=== PATIENT | female | born 1955 | race Caucasian/White ===

== ENCOUNTER 2024-05-09 11:56 | Inpatient (IN) | payer MEDICARE, OTHER ==
[~2024-05-09] VITALS: Ht 165.1 cm; Wt 67.1 kg
[2024-05-09 12:08] LABS: BASOPHILS 0.4 % (0-2); EOSINOPHILS 1.2 % (0-6); HEMATOCRIT 35.5 % (35.0-50.0); HEMOGLOBIN 12.1 g/dL (12.0-18.0); LYMPHOCYTES 42.9 % (24-44); MCH 31.5 (27-36); MCV 92.7 fl (81-99); MONOCYTES 7.7 % (0-12); NEUTROPHILS 47.8 % (39-80); PLATELET COUNT 238 K/uL (140-440); RBC 3.83 M/ul (4.3-5.7); RDW 13.4 (10.5-15.0)
[2024-05-09] MEDS ORDERED: ASPIRIN 81 MG CHEW PO ONE (12:15)
[2024-05-09 12:25] LABS: ALBUMIN 3.7 g/dL (3.4-5.0); ALBUMIN/GLOBULIN RATIO 0.95 (1.1-2.4); ANION GAP 9.7 (7-21); BILIRUBIN, TOTAL 0.6 mg/dL (0.2-1.0); BUN/CREATININE RATIO 22.35 (6.0-28.6); CALCIUM 8.9 mg/dL (8.5-10.1); CREATININE, SERUM 0.85 mg/dL (0.55-1.02); POTASSIUM 3.7 mmol/L (3.5-5.1); PROTEIN, TOTAL 7.6 g/dL (6.4-8.2)
[2024-05-09] MEDS ORDERED: NITROGLYCERIN 0.2 MG/HR TD ONE (13:30)
[2024-05-09] MEDS ORDERED: ASPIRIN 325 MG TAB PO ONE (13:30)
[2024-05-09] MEDS ORDERED: ondansetron HCL 4 MG/2 ML VIAL IV PRN (14:30)
[2024-05-09] MEDS ORDERED: ACETAMINOPHEN 325 MG TAB PO PRN (14:30)
[2024-05-09] MEDS ORDERED: ENOXAPARIN SODIUM 40 MG/0.4 ML SYR SUB-Q SCH (14:31)
[2024-05-09] MEDS ORDERED: PANTOPRAZOLE SODIUM 40 MG TABEC PO SCH (14:31)
[2024-05-09] MEDS ORDERED: NITROGLYCERIN 0.4 MG SUBL SL PRN (14:45)
[2024-05-09 14:57] LABS: TSH, 3RD GENERATION 2.251 uIU/mL (0.358-3.740)
[2024-05-09 15:23] VITALS: BP 147/66
--- NOTE | 2024-05-09 15:44 | NUR ---
PT ARRIVED TO [facility] VIA STRETCHER, WALKED TO BED W/O DIFFICULTY. ORIENTED TO CALL LIGHT. PAIN 3, TOLERABLE. NITRO PATCH IN PLACE. DAUGHTER AT BEDSIDE. DENIES NEEDS AT THIS TIME.
--- NOTE | 2024-05-09 16:41 | NUR ---
MED REC COMPLETE
--- NOTE | 2024-05-09 17:15 | NUR ---
PT IN BED, AWAKE. FAMILY AT BEDSIDE. DENIES NEEDS AT THIS TIME. CALL LIGHT IN REACH.
[2024-05-09 17:47] VITALS: BP 171/79
--- NOTE | 2024-05-09 17:55 | NUR ---
PATIENT IN BED AT THIS TIME. ELECTRICAL PRODUCTS ENGINEER CHARTED VITALS. CALL LIGHT WITHIN REACH, NO FURTHER NEEDS AT THIS TIME.
--- NOTE | 2024-05-09 18:15 | NUR ---
ECHO IN ROOM, FAMILY AT BEDSIDE. CALL LIGHT IN REACH. PT DENIES NEEDS.
--- NOTE | 2024-05-09 19:40 | NUR ---
REPORT RECEIVED FROM MARSHALL DANIEL. pt COMPLAINS ABOUT IV TAPE, NEW WINDOW PLACED, IV SITE FLUSHED WNL. pt DENIES PAIN, NO REDNESS NOTED. CALL LIGHT IN REACH. pt'S DAUGHTER IN ROOM.
[2024-05-09] MEDS ORDERED: MELATONIN 3 MG TAB PO PRN (21:00)
[2024-05-09 21:28] VITALS: BP 143/64
[2024-05-09 21:30] VITALS: BP 143/64
--- NOTE | 2024-05-09 21:40 | NUR ---
pt AWAKE RESTING IN BED VISITING WITH DAUGHTER. ASSESSMENT COMPLETE. pt DENIES ANY PAIN. VSS. HR SR 73 ON TELE 2. CALL LIGHT AND PERSONAL SUPPLIES IN REACH.
--- NOTE | 2024-05-09 23:48 | NUR ---
CHECKED ON Pt. RESTING IN BED AWAKE, STATES HAS BEEN DOSING IN AND OUT. SBA TO RESTROOM FOR VOID AND BACK TO BED. CALL LIGHT AND PERSONAL SUPPLIES WITHIN REACH.
[2024-05-10] VITALS (8 sets, daily range): BP systolic 124–161; BP diastolic 55–63
--- NOTE | 2024-05-10 01:40 | NUR ---
WEBSPHERE ADMINISTRATOR OBTAINED VITALS AND I&O. PT REQUESTING A TYLENOL. RN NOTIFED. PT STATES NO FURTHER NEEDS AT THIS TIME. CALL LIGHT WITHIN REACH.
--- NOTE | 2024-05-10 01:47 | NUR ---
IN ROOM FOR VS. pt COMPLAINS OF RAE/NECK ACHE, PRN TYLENOL ADMINISTERED. NO ADDITONAL REQUESTS. HR 67 ON TELE 2, SR.
[2024-05-10 05:28] LABS: BASOPHILS 0.2 % (0-2); EOSINOPHILS 1.6 % (0-6); HEMATOCRIT 32.6 % (35.0-50.0); HEMOGLOBIN 11.1 g/dL (12.0-18.0); LYMPHOCYTES 38.5 % (24-44); MCH 31.5 (27-36); MCV 92.5 fl (81-99); MONOCYTES 6.9 % (0-12); NEUTROPHILS 52.8 % (39-80); PLATELET COUNT 184 K/uL (140-440); RBC 3.52 M/ul (4.3-5.7); RDW 13.6 (10.5-15.0)
--- NOTE | 2024-05-10 05:36 | NUR ---
pt SLEEPING, AWAKENS TO VOICE. ASSESSMENT COMPLETE. pt DENIES ANY PAIN. VSS. DENIES TOILETING NEEDS. CALL LIGHT AND PERSONAL SUPPLIES WITHIN REACH. ICE WATER REFILLED.
[2024-05-10 05:44] LABS: ANION GAP 9.3 (7-21); BUN/CREATININE RATIO 26.76 (6.0-28.6); CALCIUM 8.7 mg/dL (8.5-10.1); CREATININE, SERUM 0.71 mg/dL (0.55-1.02); POTASSIUM 4.3 mmol/L (3.5-5.1)
--- NOTE | 2024-05-10 08:00 | NUR ---
PATIENT IN CHAIR AT THIS TIME. CRAYON MOLDING MACHINE OPERATOR ASSISTED PATIENT TO BATHROOM AND THEN TO CHAIR. CALL LIGHT WITHIN REACH, NO FURTHER NEEDS AT THIS TIME.
--- NOTE | 2024-05-10 09:29 | NUR ---
PATIENT IN BED AT THIS TIME. CAFE MANAGER CHARTED VITALS AND I&O'S. CALL LIGHT WITHIN REACH, NO FURTHER NEEDS AT THIS TIME.
[2024-05-10] MEDS ORDERED: IBUPROFEN 400 MG TAB PO ONE (10:00)
--- NOTE | 2024-05-10 10:10 | NUR ---
PT DENIED PAIN WHEN IBU WAS GIVEN. WILL CHECK BACK IN 2 HOURS. NO NEEDS AT THIS TIME.
[2024-05-10] MEDS ORDERED: PHARMACY RENAL DOSE ADJUSTMENT 1 DOSE MISC PO SCH (12:00)
--- NOTE | 2024-05-10 12:45 | NUR ---
PATIENT IN CHAIR AT THIS TIME. BOUNTY TRAPPER WENT INTO PATIENTS ROOM FOR HOURLY ROUNDS. CALL LIGHT WITHIN REACH, NO FURTHER NEEDS AT THIS TIME.
--- NOTE | 2024-05-10 14:02 | NUR ---
PATIENT IN BED AT THIS TIME. AFFILIATE MARKETING COORDINATOR CHARTED VITALS AND I&O'S. CALL LIGHT WITHIN REACH, NO FURTHER NEEDS AT THIS TIME.
--- NOTE | 2024-05-10 14:22 | NUR ---
CALLED HOSPITALIST RE: PLAN OF CARE. PT AND HER DAUGHTER ARE CONCERNED ABOUT THE TIME. PT REPORTED TO MD THAT SHE HAD PAIN IN HER STERNUM WHEN PRESSED ON. MD ORDERED IBU. IBU GIVEN. FAMILY CALLED RN BACK IN THE ROOM THEY ARE UNSURE WHAT THE PLAN IS SINCE SHE DIDN'T HAVE PAIN WHEN THE IBU WAS GIVEN. CALLED THE MD. HE WOULD STILL LIKE THE STRESS TEST DONE AND RESULTED PRIOR TO DISCHARGE. ADVISED FIRER LOW PRESSURE. WILL NOTIFY FLOAT RN.
--- NOTE | 2024-05-10 16:15 | NUR ---
CHECKED WITH PATIENT AND HER DAUGHTER. THEY ARE OK RIGHT NOW, NO NEEDS AT THIS TIME. THEY UNDERSTAND THAT THERE ARE URGENT EVENTS GOING ON ACROSS THE HOSPITAL AND STAFF IS UNAVAILABLE AT THIS TIME FOR THE STRESS TEST.
--- NOTE | 2024-05-10 17:56 | NUR ---
PATIENT IN BED AT THIS TIME. URGENT CARE PHYSICIAN CHARTED VITALS AND I&O'S. CALL LIGHT WITHIN REACH, NO FURTHER NEEDS AT THIS TIME.
--- NOTE | 2024-05-10 18:04 | NUR ---
pt off the floor with tim paiz to do stress test.
--- NOTE | 2024-05-10 18:53 | NUR ---
PT BACK ON FLOOR FROM STRESS TEST.
--- NOTE | 2024-05-10 20:20 | NUR ---
Pt assessed. VSS. Pt up independently in the room. Pt denies any chest pain or discomfort. Safety precautions maintained. Call light within reach. Will continue to monitor.
[2024-05-11] VITALS (8 sets, daily range): BP systolic 135–156; BP diastolic 62–80
--- NOTE | 2024-05-11 06:07 | NUR ---
Pt rested well during the shift. Pt up independently in room. Pt denied any chest pain or discomfort. Tele reading NSR. VSS. Safety precautions maintained. Call light within reach. Will continue to monitor.
--- NOTE | 2024-05-11 07:16 | NUR ---
VERBAL REPORT RECEIVED FROM MARSHALL BRADLEY. PT RESTS IN BED AWAKE, CALL LIGHT IN REACH, NO REQUESTS AT THIS TIME.
--- NOTE | 2024-05-11 08:40 | NUR ---
Board has been updated and call light has been placed within reach
--- NOTE | 2024-05-11 14:40 | NUR ---
PT SITS UP IN BED, AWAKE AND ALERT, VISITS WITH VISITOR X2. CALL LIGHT IN REACH, NO REQUESTS AT THIS TIME.
--- NOTE | 2024-05-11 16:43 | NUR ---
PT RESTS IN BED, AWAKE AND ALERT, VISITOR X1 IN ROOM. PT DENIES ANY NEEDS AT THIS TIME. CALL LIGHT IN REACH, NO REQUESTS AT THIS TIME.
--- NOTE | 2024-05-11 20:50 | NUR ---
Pt assessed and meletonin given. VSS. Pt up independently in room. Pt denies any chest pain or discomfort. Safety precautions maintained. Call light within reach. Will continue to monitor.
--- NOTE | 2024-05-11 21:30 | EKG ---
[facility] [address] [facility] [place], [place] [address] Signed Normal sinus rhythm Normal ECG No previous ECGs available Confirmed by Carlos Velazquez DO ([id number]) on 05/11/2024 9:30:24 PM Electronically Signed By: CARLOS VELAZQUEZ DO [id number] PATIENT NAME: PATRICIA VOSS Electrocardiogram DATE OF : 51 PHYSICIAN: CARLOS VELAZQUEZ DO REPORT #: [id number] REPORT IS CONFIDENTIAL AND NOT TO BE RELEASED WITHOUT AUTHORIZATION
[2024-05-12] VITALS (10 sets, daily range): BP systolic 129–159; BP diastolic 52–64
--- NOTE | 2024-05-12 05:22 | NUR ---
Pt rested well during the shift. VSS. Tele reading NSR. Pt NPO since midnight in preparation for a chemical stress test today. Pt up independently to bathroom, good output noted. Safety precautions maintained. Call light within reach. Will continue to monitor.
[2024-05-12 05:26] LABS: ANION GAP 10.4 (7-21); BUN/CREATININE RATIO 35.13 (6.0-28.6); CALCIUM 8.9 mg/dL (8.5-10.1); CREATININE, SERUM 0.74 mg/dL (0.55-1.02); POTASSIUM 4.4 mmol/L (3.5-5.1)
--- NOTE | 2024-05-12 07:07 | NUR ---
VERBAL REPORT RECEIVED FROM MARSHALL BRADLEY. PT RESTS IN BED AWAKE AND ALERT, WATCHES TV, NO REQUETS AT THIS TIME.
[2024-05-12] MEDS ORDERED: Regadenoson 0.4 MG/5 ML SYR IV ONE (10:00)
--- NOTE | 2024-05-12 10:11 | NUR ---
PT LEAVES UNIT VIA WHEELCHAIR FOR PROCEDURE IN IMAGING.
--- NOTE | 2024-05-12 10:34 | NUR ---
PT NOT AVAILABLE FOR VISIT. PROVIDED PRAYER.
--- NOTE | 2024-05-12 11:08 | NUR ---
UR CLINICAL REVIEW: 2 MN FOR VERSALUS-PER MANAGER SITE MEETS INPT FOR CHEST PAIN MEDICARE OBS TO INPT 05/11/24 @ 0662 ORDER MATCHES REG NO AUTH REQUIRED PER MEDICARE GUIDELINES DISCHARGE DISPOSITION PENDING FURTHER EVAL. POSSIBLE TRANSFER TO HIGHER LEVEL OF CARE.
--- NOTE | 2024-05-12 11:11 | NUR ---
PT RETURNS TO ROOM 120 FROM PROCEDURE. RESTS IN BED WITH CALL LIGHT IN REACH.
--- NOTE | 2024-05-12 11:35 | NUR ---
Spoke with Aileen. She states she has been living in an RV in a friends driveway on and off for 2 years. He daughter wants her to move in with her and her spouse and pts is in agreement. Pt states she is usually in very good health and has not seen a DrRadha in 15 years. She would like to see Dr. Guadarrama for her PCP as this is who her daughter sees. I will check with the clinic. Pt drives. She is not currently working. She denies financial issues, but states she get $500 SS and this is what she lives on. 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 I gave her the number for [facility] and encouraged her to call for food stamps. She denies concerns for safety issues. She also plans on checking for SS from her spouse. She has the number to make an appt with the SS office here in [facility]. Pt getting ready to have the second part of her nuclear stress test.
--- NOTE | 2024-05-12 12:10 | NUR ---
PT RETURNS TO ROOM 120 FROM PROCEDURE IN IMAGING DEPARTMENT.
--- NOTE | 2024-05-12 14:09 | NUR ---
ROUNDED ON PT. SITTING UP IN BED TALKING WITH DTR. REFILLED ICE CUP. DENIES NEEDS ATT. JUST WAITING ON TEST RESULTS, HOPING TO GO HOME THIS AFTERNOON.
--- NOTE | 2024-05-12 16:21 | NUR ---
COVERED PATIENT'S IV SITES AND HEART MONITOR FOR SHOWER. PATIENT TO SHOWER INDIPENDENTLY. FAMILY AT BEDSIDE. PATIENT HAD NO OTHER REQUESTS AT THIS TIME.
--- NOTE | 2024-05-12 18:58 | NUR ---
ORTHO STATIC BP OBTAINED ORDERED BY DR. GUZMAN. LAYIN/62, MAP 88, PULSE 77 SITTIN/55, MAP 73, PULSE 75 STANDIN/62, MAP 76, PULSE 87
--- NOTE | 2024-05-12 19:27 | NUR ---
Report received from day shift RN. Pt resting in bed. Pt's daughter at bedside. Safety precautions maintained. Call light within raech. Will continue to monitor.
[2024-05-12] MEDS ORDERED: LACTATED RINGER'S 1,000 ML IV ONE (19:30)
--- NOTE | 2024-05-12 20:05 | NUR ---
Pt assessed. LR bolus x1 done per order. Pt denies feeling dizzie at this time. No chest pain or discomfort noted per pt. VSS. Safety precautions maintained. Call light within reach. Will continue to monitor.
[2024-05-13 01:39] VITALS: BP 128/54
[2024-05-13 05:06] VITALS: BP 123/55
[2024-05-13 05:22] VITALS: BP 123/55
--- NOTE | 2024-05-13 05:31 | NUR ---
Pt rested well during the shift. VSS. Tele reading NSR. LR bolus x1 given per order. Pt denies any pain or discomfort. Safety precautions maintained. Call light within reach. Will continue to monitor.
[2024-05-13 05:44] LABS: ALBUMIN 3.1 g/dL (3.4-5.0); ALBUMIN/GLOBULIN RATIO 0.86 (1.1-2.4); ANION GAP 12.2 (7-21); BILIRUBIN, TOTAL 0.3 mg/dL (0.2-1.0); BUN/CREATININE RATIO 28.98 (6.0-28.6); CALCIUM 8.5 mg/dL (8.5-10.1); CREATININE, SERUM 0.69 mg/dL (0.55-1.02); POTASSIUM 4.2 mmol/L (3.5-5.1); PROTEIN, TOTAL 6.7 g/dL (6.4-8.2)
--- NOTE | 2024-05-13 07:08 | NUR ---
VERBAL REPORT RECEIVED FROM MARSHALL BRADLEY. PT RESTS IN BED AWAKE AND ALERT, CALL LIGHT IN REACH, NO REQUESTS AT THIS TIME.
--- NOTE | 2024-05-13 10:15 | NUR ---
ORTHOSTATIC BP OBTAINED: LAYIN/60, MAP 78, PULSE 77 SITTIN/52, MAP 68, PULSE 72 STANDIN/54, MAP 66, PULSE 83
[2024-05-13 10:22] VITALS: BP 145/59
--- NOTE | 2024-05-13 10:26 | NUR ---
PATIENT SITTING UP IN BED, FAMILY IN ROOM. VITALS AND I&O'S DONE AND CHARTED. CALL LIGHT IN REACH. NO FURTHER NEEDS AT THIS TIME. PATIENT REFUSED SHOWER AT THIS TIME.
[2024-05-13] MEDS ORDERED: LACTATED RINGER'S 1,000 ML IV ONE (10:45)
--- NOTE | 2024-05-13 10:54 | NUR ---
LR BOLUS STARTED. DISCUSSED THERAPY AND POC WITH AND FAMILY.
--- NOTE | 2024-05-13 11:30 | NUR ---
Spoke with Aileen. Daughter in the room and Aileen is tearful. Daughter asks if their is any grief counseling available in our area. 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 We discussed resources again. I called Hilary from eligibility and she will see pt for OHP. Discussed low income housing and daughter will bulk picker a form from [facility]. Pt plans on moving in with daughter, temporarily, but would like to have place of her own. Pt was able to call [facility] and SS. Both are scheduled to call her back.
--- NOTE | 2024-05-13 12:26 | NUR ---
LR LITTER BOLUS COMPLETE. ORTHOSTATIC BP REPEATED AND REPORTED TO DR. GUZMAN. LAYIN/60, MAP 63, PULSE 88. SITTIN/61, MAP 69, PULSE 69 STANDIN/68, MAP 88, PULSE 75.
--- NOTE | 2024-05-13 14:00 | NUR ---
Spoke with Aileen and her daughter. I also spoke with Hilary. She belives pt will qualify for OHP. She will not know until tomorrow. I discussed with pt and daughter. I will send a referral to [facility] and request an appt for Aileen. They will contact her. I called [facility] and they are scheduling into August, but do have a wait list. I will send info tomorrow when I claify if pt has OHP. Pt and daughter deny other needs. Pt is ready for dc.
[2024-05-13 14:18] VITALS: BP 166/67
--- NOTE | 2024-05-13 14:32 | NUR ---
DISCUSSED DISCHARGE INSTRUCTIONS WITH PT AND PT'S DAUGHTER, BOTH VERBALIZE UNDERSTANDING. IV REMOVED BY BANDAR MONTOYA, TIP INTACT, GAUZE AND COBAN DRESSING APPLIED TO SITE, PT TOLERATED WELL. PT DRESSES SELF. PT AMBULATES OFF UNIT WITH BANDAR MONTOYA TO PRIVATE CARE DRIVEN BY DAUGHTER.
--- NOTE | 2024-05-13 14:44 | STRESS ---
[facility] [address] [place] [address] Signed DATE OF STUDY: PROCEDURE: EKG stress test. SUMMARY REPORT: The patient was stressed according to Brian protocol, achieved a work level of 7 METS. Resting heart rate was 73 beats per minute. Resting blood pressure 163/65 mmHg. The patient exercised for 4 minutes and 40 seconds only, this is only stage II. Heart rate increased to 117 beats per minute representing 78% of maximal age predicted heart rate and blood pressure increased to 198/44 mmHg. There was no ischemic EKG changes at this level of exercise, which is submaximal. CONCLUSION: 1. Asymptomatic submaximal exercise EKG stress test, 78% of maximal age predicted heart rate, below-average functional status. 2. No ischemic EKG changes at this level of exercise, which is submaximal. 3. Intermediate risk based on exercise stress test. [facility] MD DUYEN Branch/MYNOR /[id number] PATIENT NAME: PATRICIA VOSS Stress test DATE OF : 51 PHYSICIAN: HAYES BRANCH MD REPORT #: [id number] REPORT IS CONFIDENTIAL AND NOT TO BE RELEASED WITHOUT AUTHORIZATION
--- NOTE | 2024-05-14 08:06 | STRESS ---
[facility] [address] [facility] [place] [address] Signed DATE OF STUDY: This is a nondiagnostic pharmacologic EKG stress test for ischemia. Kindly refer to nuclear perfusion scan that separately ready by the radiologist for complete results. MD NICK Bueno/MYNOR /[id number] PATIENT NAME: PATRICIA VOSS Stress test DATE OF : 51 PHYSICIAN: CHRISTINA TYSON MD REPORT #: [id number] REPORT IS CONFIDENTIAL AND NOT TO BE RELEASED WITHOUT AUTHORIZATION
--- NOTE | 2024-05-14 09:00 | NUR ---
Spoke with Hilary from Hilary from Eligibility. She states pt was already signed up for OHP. She will add info to pts chart.
--- NOTE | 2024-05-14 10:48 | NUR ---
Chart faxed to [facility] requesting eval and set up for grief scheduling.
== END 2024-05-13 14:32 | disposition home or self-care (01) | DRG 313 ==
LOC: ED 11:56 → MS 11:57
PROVIDERS: Emergency Medicine; ADMIT Student in an Organized Health Care Education/Training Program; ATTEND Student in an Organized Health Care Education/Training Program
DX: R07.9 Chest pain, unspecified (principal); Z88.0 Allergy status to penicillin
CPT/HCPCS: 36415; 71045; 75571; 78452; 80048; 80053; 80061; 83036; 83735; 84439; 84443; 84484; 85025; 93005; 93010; 93017; 93306; 99285-25; A9270; A9500; J1650; J7121

== ENCOUNTER 2024-09-26 05:53 | Day surgery (SDC) | payer MEDICARE, OTHER ==
[2024-09-08 11:40] VITALS: BP 145/59
[~2024-09-26] VITALS: Ht 170.2 cm; Wt 71.0 kg
[~2024-09-26 05:53] MED LIST: LACTATED RINGER'S 1,000 ML IV SCH; LISINOPRIL10 MG PO; PRENATAL MULTI1 EAC3 PO
[2024-09-26 06:05] VITALS: BP 150/56
[2024-09-26] MEDS ORDERED: LIDOCAINE HCL 1% 5 ML SDV INJ ONE (07:00)
[2024-09-26] MEDS ORDERED: IBLOOD GLUCOSE TEST STRIP 1 EA TEST VI PRN (07:00)
[2024-09-26] MEDS ORDERED: CEFAZOLIN SODIUM 2 GM/20 ML SYR IV SCH (07:00)
[2024-09-26] MEDS ORDERED: DEXAMETHASONE SOD PHOS 10 MG/ML VIAL ONE (07:28)
[2024-09-26] MEDS ORDERED: BUPIVACAINE HCL 0.25% 30 ML SDV ONE (07:31)
[2024-09-26] MEDS ORDERED: LIDOCAINE HCL 2% 5 ML SDV ONE ×3 (07:32→09:58)
[2024-09-26] MEDS ORDERED: PHENYLEPHRINE HCL 10 MG/ML VIAL ONE (07:38)
[2024-09-26] MEDS ORDERED: KETAMINE in NS 50 MG/5 ML SYR ONE (07:56)
[2024-09-26] MEDS ORDERED: fentaNYL citrate 100 MCG/2 ML VIAL ONE (07:56)
[2024-09-26] MEDS ORDERED: KETOROLAC TROMETHAMINE 30 MG/ML VIAL ONE (07:57)
[2024-09-26] MEDS ORDERED: ACETAMINOPHEN 1,000 MG/100 ML VIAL ONE (08:26)
--- NOTE | 2024-09-26 09:28 | NUR ---
09/26/24 0928 Lauryn Davis 0915- PT ARRIVES TO PACU, SEMI [place]WTON POSITION, NON REACTIVE TO STIMULUS. LMA IN PLACE WITH 6L O2 OVER THE END WITH MASK. BREATHING EVEN AND NON LABORED, LR INFUSING TO RH IV. DRESSING TO LEFT BREAST CDI. ABD SOFT, NON DISTNEDED. ALL MONITORS IN PLACE. SUCTION ON AND AT BEDSIDE.
[2024-09-26] MEDS ORDERED: NALOXONE HCL 0.4 MG SYR IV PRN (09:30)
[2024-09-26] MEDS ORDERED: HYDROmorphone HCL 1 MG/ML SYR IV PRN (09:30)
[2024-09-26] MEDS ORDERED: fentaNYL citrate 50 MCG/ML SDV IV PRN (09:30)
[2024-09-26] MEDS ORDERED: MIDAZOLAM HCL 2 MG/2 ML VIAL IV PRN (09:30)
[2024-09-26] MEDS ORDERED: OXYCODONE/APAP 5/325 TAB PO PRN (09:45)
[2024-09-26] MEDS ORDERED: SUCCINYLCHOLINE IN 0.9% NACL 200 MG/10 ML SYRINGE ONE (09:58)
[2024-09-26 10:14] VITALS: BP 120/55
--- NOTE | 2024-09-26 10:18 | NUR ---
1010 PT BACK TO DAYSURGERY FROM PACU AWAKE AND ALERT REPORT PAIN 4/10 AND IS STARTING TO BECOME INTOLERABLE. PT EATING PUDDING AND DRINKING WATER TOLERATES WELL. PT DENIES NAUSEA. WARM BLANKET PLACED ON PT CALL LIGHT WITHIN REACH. DAUGHTER AT BEDSIDE. PAIN PILL GIVEN TO PT.
[2024-09-26 11:10] VITALS: BP 133/56
--- NOTE | 2024-09-26 11:12 | NUR ---
1110 HOURLY ROUNDING DONE WITH PT. VITALS TAKEN. IV ASSESSED. PT REPORTS TOLERABLE 2/10 PAIN. PT REPORTS NO NAUSEA AT THIS TIME. PT HAS BEEN ABLE TO TOLERATE PO FLUIDS AND PUDDING. PT REPORTS NO URGE TO URINATE AT THIS TIME. PT HAS SUPPORT PERSON IN ROOM. PT HAS CALL LIGHT WITHIN REACH, PERSONAL ITEMS WITHIN REACH AND BED IS LOW AND LOCKED.
--- NOTE | 2024-09-26 12:00 | NUR ---
1140 PT USED CALL LIGHT TO ALERT RN THAT PT STATES SHE HAS URGENCY TO URINATE. PT IS ABLE TO AMBULATE DOWN THE HALLWAY. PT HAS EPISODE OF SMALL AMOUNT OF INCONTINENCE. PT STATES 'I REALLY HAVE TO PEE'. PT ABLE TO AMBULATE TO BATHROOM AND VOID 300 MLS OF CLEAR YELLOW URINE INTO HAT IN TOILET. PT ABLE TO AMBULATE BACK TO ROOM WITHOUT INCONTINENT EPISODE. SPOKE WITH PT THAT IF THIS HAPPENS AGAIN TO CALL OR COME BACK INTO HOSPITAL. PT HAD RECIEVED A TOTAL OF 2000MLS OF LR BETWEN PREOP, OR, PACU AND RECOVERY. PT ABLE TO GET DRESSED ON OWN. 1145 DISCHARGE INFORMATION GONE OVER WITH PT AND DAUGHTER IN ROOM. NO QUESTIONS AT THIS TIME. PT REPORTS NO NAUSEA, AND TOLERABLE 2/10 PAIN. PT HAS BEEN ABLE TO TOLERATE PO FLUIDS AND SNACKS. 1148 IV DISCONTINUED FOR DISCHARGE. SITE WRAPPED WITH GAUZE AND COBAN. 1150 PT DISCHARGED FROM DAY SURGERY VIA WHEELCHAIR TO THE FRONT OF THE HOSPITAL TO PT'S DAUGHTERS CAR. PT DAUGHTER HAS DISCHARGE INFORMATION IN HAND.
[2024-09-26] MEDS ORDERED: SEVOFLURANE 250 ML BTL INH ONE (16:28)
== END 2024-09-26 11:50 | disposition home or self-care (01) ==
LOC: DS 05:53
PROVIDERS: ATTEND Surgery
PROC: 0HBU0ZX Excision of Left Breast, Open Approach, Diagnostic (ICD-10-PCS; principal; 2024-09-26 07:30)
DX: N60.92 Unspecified benign mammary dysplasia of left breast (principal); Z80.3 Family history of malignant neoplasm of breast; Z88.0 Allergy status to penicillin; Z88.8 Allergy status to other drugs, medicaments and biological substances; Z79.899 Other long term (current) drug therapy
CPT/HCPCS: 00400; 76098; 76942; 88305; J0131; J0330; J0690; J1100; J1885; J2003; J2371; J2405; J3010; J3490; J7121